=== PATIENT | female | born 1980 | race African-American/Black ===

== ENCOUNTER 2021-08-20 17:10 | Inpatient (IN) | payer MEDICARE, MEDICAID, OTHER ==
[~2021-08-20 17:10] MED LIST: Iopamidol-370 76% 500 ML 1 ML ONE
[2021-08-20] MEDS ORDERED: Ondansetron PF 4 MG/2 ML Vial ONE (18:12)
[2021-08-20 18:18] LABS: #Eosinphils 0.1 thou/uL (0.0-0.7); #Lymphocytes 2.5 thou/uL (1.20-3.40); #Monocytes 0.4 thou/uL (0.11-0.59); #Neutrophils 7.7 thou/uL (1.40-6.50); %Basophils 0.1 % (0.0-1.0); %Eosinophils 0.9 % (0.0-10.0); %Monocytes 3.7 % (0.0-10.0); %Neutrophils 72.3 % (42.0-75.0); Hemoglobin 12.2 g/dL (12.0-16.0); Mean Corpuscular HGB CONC 33.8 g/dL (32.0-36.0); Mean Corpuscular Hemoglobin 27.8 pg (27.0-31.0); Mean Corpuscular Volume 82.1 fL (78.0-98.0); Mean Platelet Volume 8.4 fL (7.4-10.4); Platelet Count 304 thou/uL (130-400); RBC Distribution Width 14.9 % (11.5-14.5); Red Blood Cell (RBC) Count 4.39 mill/uL (4.20-5.40); White Blood Cell (WBC) Count 10.7 thou/uL (4.8-10.8)
[2021-08-20 18:22] LABS: BHCG - Serum Negative (NEGATIVE); Pregs Control Background? CLEAR/WHITE (CLR/WHITE); Pregs Control Bar Appear? YES (CONTROL BAR)
[2021-08-20 18:42] LABS: ALT (SGPT) 11 U/L (8-55); AST (SGOT) 14 U/L (5-34); Alkaline Phosphatase 81 U/L (40-110); Anion Gap 12 mmol/L (10-20); BUN (Urea Nitrogen) 7 mg/dL (7.0-18.7); Bilirubin, Total 0.2 mg/dL (0.2-1.2); Calc. Creatinine Clearance 0 mL/min (70-130); Calcium 9.9 mg/dL (7.8-10.44); Carbon Dioxide 24 mmol/L (22-29); Chloride 105 mmol/L (98-107); Globulin 3.1 g/dL (2.4-3.5); Glucose 92 mg/dL (70-105); Lipase 50 U/L (8-78); Potassium 4.2 mmol/L (3.5-5.1); Protein, Total 7.1 g/dL (6.0-8.3); Sodium 137 mmol/L (136-145)
[2021-08-20] MEDS ORDERED: Ketorolac Tromethamine 30 MG/ML VIAL ONE (20:01)
[2021-08-20] MEDS ORDERED: Morphine 4 MG/ML VIAL ONE (20:22)
[2021-08-20] MEDS ORDERED: Piperacillin/Tazobactam 3.375 GM VIAL ONE (20:29)
[2021-08-20] MEDS ORDERED: Calcium Carbonate 500 MG ChewTAB PO PRN (21:43)
[2021-08-20] MEDS ORDERED: Ketorolac Tromethamine 30 MG/ML VIAL IVP PRN (21:43)
[2021-08-20] MEDS ORDERED: Dextrose 5% in Water 1,000 ML IV PRN (21:43)
[2021-08-20] MEDS ORDERED: Mag-Al 1200 mg/1200 mg/30 ML UDCUP PO PRN (21:43)
[2021-08-20] MEDS ORDERED: Morphine 4 MG/ML VIAL SLOW IVP PRN ×2 (21:43→21:47)
[2021-08-20] MEDS ORDERED: Dextrose 50% Abboject 50 ML SYRINGE SLOW IVP PRN (21:43)
[2021-08-20] MEDS ORDERED: hydrALAZINE 20 MG/ML VIAL SLOW IVP PRN (21:43)
[2021-08-20] MEDS ORDERED: Promethazine HCl 25 MG/ML VIAL IM PRN (21:43)
[2021-08-20 21:54] VITALS: BMI 31.6
[2021-08-20 22:10] LABS: SARS-CoV-2 NAA Rapid Test Not Detected (NotDetected)
[2021-08-20] MEDS: Famotidine/PF 20 mg/2ml Vial SLOW IVP SCH (22:47)
[2021-08-20] MEDS: D5 1/2 NS w/20 mEq KCL 1,000 ML IV SCH (22:47)
[2021-08-20] MEDS: Famotidine 20 MG TAB PO SCH (22:48)
[2021-08-20] MEDS ORDERED: Piperacillin/Tazobactam 3.375 GM in Sodium Chloride 0.9% 100 ML IVPB SCH (23:59)
[2021-08-21] MEDS: Piperacillin/Tazobactam 3.375 GM in Sodium Chloride 0.9% 100 ML IVPB SCH ×3 (01:23→17:57)
[2021-08-21] MEDS ORDERED: Zolpidem Tartrate 5 MG TAB PO PRN (02:58)
[2021-08-21] MEDS ORDERED: Zolpidem Tartrate 5 MG TAB PO SCH (03:00)
[2021-08-21] MEDS: Famotidine/PF 20 mg/2ml Vial SLOW IVP SCH ×2 (07:52→21:18)
[2021-08-21] MEDS: D5 1/2 NS w/20 mEq KCL 1,000 ML IV SCH ×2 (08:00→12:40)
[2021-08-21] MEDS: Famotidine 20 MG TAB PO SCH ×2 (08:00→21:19)
[2021-08-21] MEDS ORDERED: Piperacillin/Tazobactam 3.375 GM VIAL ONE (09:09)
[2021-08-21] MEDS ORDERED: Sodium Chloride 0.9% 100 ML ONE (09:09)
[2021-08-21] MEDS ORDERED: Fentanyl 100 MCG/2 ML VIAL ONE ×2 (09:11→10:30)
[2021-08-21] MEDS ORDERED: Midazolam HCl 2 mg/2 ml Vial ONE (09:11)
[2021-08-21] MEDS ORDERED: Bupivacaine 0.25% HCL 30 ML VIAL ONE (09:19)
[2021-08-21] MEDS ORDERED: EPINEPHrine 1 MG/ML AMP ONE (09:19)
[2021-08-21] MEDS ORDERED: Ondansetron PF 4 MG/2 ML Vial ONE (09:45)
[2021-08-21] MEDS ORDERED: Rocuronium Bromide 10 MG/ML (10ML VIAL) ONE (09:45)
[2021-08-21] MEDS ORDERED: Glycopyrrolate 0.2 MG/ML 5 ML SYRINGE ONE (09:45)
[2021-08-21] MEDS ORDERED: PROPOFOL 200 MG/20 ML VIAL ONE (09:45)
[2021-08-21] MEDS ORDERED: Lidocaine 1% PF 5 ML VIAL ONE (09:45)
[2021-08-21] MEDS ORDERED: Dexamethasone 20 MG/5 ML VIAL ONE (09:45)
[2021-08-21] MEDS ORDERED: Iothalamate Meglumine 60% 50 ML VIAL FS ONE (10:33)
[2021-08-21] MEDS ORDERED: Morphine 4 MG/ML VIAL ONE (11:38)
[2021-08-21] MEDS: Morphine 4 MG/ML VIAL SLOW IVP PRN ×2 (12:40→17:57)
[2021-08-21] MEDS: HYDROcodone/Acetaminophen 7.5/325 mg Tablet PO PRN ×2 (15:15→21:17)
[2021-08-21] MEDS: Ondansetron PF 4 MG/2 ML Vial IVP PRN (19:14)
[2021-08-21] MEDS: Zolpidem Tartrate 5 MG TAB PO PRN (21:18)
[2021-08-22] MEDS: Piperacillin/Tazobactam 3.375 GM in Sodium Chloride 0.9% 100 ML IVPB SCH ×3 (00:52→16:42)
[2021-08-22] MEDS: HYDROcodone/Acetaminophen 7.5/325 mg Tablet PO PRN ×3 (06:11→20:30)
[2021-08-22] MEDS: D5 1/2 NS w/20 mEq KCL 1,000 ML IV SCH ×3 (06:13→16:43)
[2021-08-22] MEDS: Morphine 4 MG/ML VIAL SLOW IVP PRN ×2 (07:56→18:00)
[2021-08-22] MEDS: Ondansetron PF 4 MG/2 ML Vial IVP PRN ×2 (07:56→18:00)
[2021-08-22] MEDS: Famotidine/PF 20 mg/2ml Vial SLOW IVP SCH ×2 (09:55→21:34)
[2021-08-22] MEDS: Famotidine 20 MG TAB PO SCH ×2 (09:56→20:30)
[2021-08-22] MEDS: Zolpidem Tartrate 5 MG TAB PO PRN (20:30)
[2021-08-23] MEDS: D5 1/2 NS w/20 mEq KCL 1,000 ML IV SCH ×3 (00:35→14:45)
[2021-08-23] MEDS: Piperacillin/Tazobactam 3.375 GM in Sodium Chloride 0.9% 100 ML IVPB SCH ×2 (00:49→08:56)
[2021-08-23] MEDS: HYDROcodone/Acetaminophen 7.5/325 mg Tablet PO PRN ×3 (04:02→14:27)
[2021-08-23] MEDS: Ondansetron PF 4 MG/2 ML Vial IVP PRN (08:30)
[2021-08-23] MEDS: Famotidine/PF 20 mg/2ml Vial SLOW IVP SCH (08:56)
[2021-08-23] MEDS: Famotidine 20 MG TAB PO SCH (12:09)
[2021-08-23 16:45] VITALS: BP 134/86; TEMP 98.4
[2021-08-24] MEDS ORDERED: FLU VACC QS2021-22(6MOS UP)/PF 60 MCG/0.5 ML SYRINGE IM ONE (09:00)
== END 2021-08-23 16:29 | DRG 419 ==
LOC: ERS 17:10 → SJJU 20:38
PROVIDERS: ADMIT Surgery; ATTEND Surgery
PROC: 0FT44ZZ Resection of Gallbladder, Percutaneous Endoscopic Approach (ICD-10-PCS; principal; 2021-08-21)
PROC: BF131ZZ Fluoroscopy of Gallbladder and Bile Ducts using Low Osmolar Contrast (ICD-10-PCS; 2021-08-21)
DX: K81.0 Acute cholecystitis (principal); Z20.822 Contact with and (suspected) exposure to COVID-19; Z88.8 Allergy status to other drugs, medicaments and biological substances
CPT/HCPCS: 36415; 47532; 74177; 76705; 80053; 83690; 84703; 85025; 88304; 96365; 96375; J0171; J1100; J1885; J2250; J2270; J2405; J2543; J2704; J3010; J3480; J3490; Q9961-U8; Q9967; S0020; S0028; U0002